=== PATIENT | female | born 1990 | race Two or more races ===

== ENCOUNTER 2017-04-27 11:19 | Emergency (ER) | payer OTHER ==
[~2017-04-27] VITALS: Ht 144.8 cm; Wt 68.0 kg
[2017-04-27] MEDS ORDERED: NKM (11:26)
[2017-04-27 12:16] LABS: APPEARANCE,URINE CLEAR; KETONES,URINE NEGATIVE (NEGATIVE); LEUKOCYTE ESTERASE ,URINE NEGATIVE (NEGATIVE); NITRITE,URINE NEGATIVE (NEGATIVE); PH,URINE 8 (4.5-8.0); PROTEIN,URINE NEGATIVE (NEGATIVE); UROBILINOGEN,URINE NORMAL MG/DL (0.0-1.0)
[2017-04-27 12:16] LABS: BASOPHILS % (AUTO) 0.5 % (0.0-2.0); EOSINOPHILS % (AUTO) 0.3 % (0.0-3.0); LYMPHOCYTES % (AUTO) 20.1 % (20.0-45.0); MEAN CORPUSCULAR HEMOGLOBIN 30.8 PG (27.0-31.0); MEAN CORPUSCULAR HGB CONC 34.7 G/DL (32.0-36.0); MEAN CORPUSCULAR VOLUME 89 FL (80-99); MEAN PLATELET VOLUME 8.7 FL (6.5-10.1); MONOCYTES % (AUTO) 4.5 % (1.0-10.0); NEUTROPHILS % (AUTO) 74.5 % (45.0-75.0); PLATELET COUNT 253 K/UL (150-450); RED BLOOD COUNT 4.86 M/UL (4.20-5.40); RED CELL DISTRIBUTION WIDTH 10.7 % (11.6-14.8); WHITE BLOOD COUNT 6.7 K/UL (4.8-10.8)
[2017-04-27 12:24] LABS: ANION GAP 10 mmol/L (5-15); CALCIUM 9.6 MG/DL (8.5-10.1); CARBON DIOXIDE 27 MMOL/L (21-32); CHLORIDE 102 MMOL/L (98-107); CREATININE 0.8 MG/DL (0.55-1.30); GLOMERULAR FILTRATION RATE > 60 mL/min (>60); POTASSIUM 3.8 MMOL/L (3.5-5.1); SODIUM 139 MMOL/L (136-145)
[2017-04-27 12:25] LABS: BACTERIA,URINE OCCASIONAL /HPF; SQUAMOUS EPITHELIAL CELL,UR OCCASIONAL /LPF (NONE/OCC); WBC,URINE 0-2 /HPF (0 - 2)
[2017-04-27 12:29] LABS: ALANINE AMINOTRANSFERASE 48 U/L (12-78); ALBUMIN/GLOBULIN RATIO 1.1 (1.0-2.7); ASPARTATE AMINO TRANSFERASE 24 U/L (15-37); LIPASE 136 U/L (73-393); TOTAL PROTEIN 8.7 G/DL (6.4-8.2)
--- NOTE | 2017-04-27 13:09 | Emergency Room Report ---
History of Present Illness General Chief Complaint: Complications Source: Patient Present Illness HPI 27-year-old female presents ED for evaluation. Patient referred here to rule out ectopic . Patient states she found out today from her clinic that she is . Has been having vaginal bleeding for last month and a half. Denies abdominal pain. Denies any fevers or chills. No other aggravating relieving factors. Denies any other associated symptoms Allergies: Coded Allergies: No Known Allergies (Unverified , 04/27/17) Patient History Past Medical History: none Past Surgical History: none Pertinent Family History: none Social History: Denies: smoking, alcohol use, drug use Last Menstrual Period: unknown Now: No - "rule out ectopic vs miscarriage" : 0 Para: 0 Immunizations: UTD Reviewed Nursing Documentation: PMH: Agreed, PSxH: Agreed Nursing Documentation-PMH Past Medical History: No Stated History Review of Systems All Other Systems: negative except mentioned in HPI Physical Exam Vital Signs Date Time Temp Pulse Resp B/P (MAP) Pulse Ox O2 Delivery O2 Flow Rate FiO2 04/27/17 11:26 98.1 106 14 135/87 93 Room Air Sp02 EP Interpretation: reviewed, normal General Appearance: no apparent distress, alert, GCS 15, non-toxic Head: normocephalic, atraumatic Eyes: bilateral eye normal inspection, bilateral eye PERRL ENT: hearing grossly normal, normal pharynx, no angioedema, normal voice Neck: full range of motion, supple/symm/no masses Respiratory: chest non-tender, lungs clear, normal breath sounds, speaking full sentences Cardiovascular #1: regular rate, rhythm, no edema Cardiovascular #2: 2+ carotid (R), 2+ carotid (L), 2+ radial (R), 2+ radial (L) , 2+ dorsalis pedis (R), 2+ dorsalis pedis (L) Gastrointestinal: normal bowel sounds, non tender, soft, non-distended, no guarding, no rebound Rectal: deferred Genitourinary: normal inspection, no CVA tenderness Musculoskeletal: back normal, gait/station normal, normal range of motion, non- tender Neurologic: alert, oriented x3, responsive, motor strength/tone normal, sensory intact, speech normal Psychiatric: judgement/insight normal, memory normal, mood/affect normal, no suicidal/homicidal ideation Reflexes: 3+ bicep (R), 3+ bicep (L), 3+ tricep (R), 3+ tricep (L), 3+ knee (R) , 3+ knee (L) Skin: normal color, no rash, warm/dry, well hydrated Lymphatic: no adenopathy Medical Decision Making Diagnostic Impression: Primary Impression: Miscarriage Labs Test 04/27/17 11:39 04/27/17 12:06 Urine Color Pale yellow Urine Appearance Clear Urine pH 8 (4.5-8.0) Urine Specific [place] 1.010 (1.005-1.035) Urine Protein Negative (NEGATIVE) Urine Glucose (UA) Negative (NEGATIVE) Urine Ketones Negative (NEGATIVE) Urine Occult Blood 5+ (NEGATIVE) Urine Nitrite Negative (NEGATIVE) Urine Bilirubin Negative (NEGATIVE) Urine Urobilinogen Normal MG/DL (0.0-1.0) Urine Leukocyte Esterase Negative (NEGATIVE) Urine RBC 5-10 /HPF (0 - 2) Urine WBC 0-2 /HPF (0 - 2) Urine Squamous Epithelial Cells Occasional /LPF Urine Bacteria Occasional /HPF (NONE) Urine HCG, Qualitative Negative White Blood Count 6.7 K/UL (4.8-10.8) Red Blood Count 4.86 M/UL (4.20-5.40) Hemoglobin 15.0 G/DL (12.0-16.0) Hematocrit 43.2 % (37.0-47.0) Mean Corpuscular Volume 89 FL (80-99) Mean Corpuscular Hemoglobin 30.8 PG (27.0-31.0) Mean Corpuscular Hemoglobin Concent 34.7 G/DL (32.0-36.0) Red Cell Distribution Width 10.7 % (11.6-14.8) Platelet Count 253 K/UL (150-450) Mean Platelet Volume 8.7 FL (6.5-10.1) Neutrophils (%) (Auto) 74.5 % (45.0-75.0) Lymphocytes (%) (Auto) 20.1 % (20.0-45.0) Monocytes (%) (Auto) 4.5 % (1.0-10.0) Eosinophils (%) (Auto) 0.3 % (0.0-3.0) Basophils (%) (Auto) 0.5 % (0.0-2.0) Sodium Level 139 MMOL/L (136-145) Potassium Level 3.8 MMOL/L (3.5-5.1) Chloride Level 102 MMOL/L (98-107) Carbon Dioxide Level 27 MMOL/L (21-32) Anion Gap 10 mmol/L (5-15) Blood Urea Nitrogen 12 mg/dL (7-18) Creatinine 0.8 MG/DL (0.55-1.30) Estimat Glomerular Filtration Rate > 60 mL/min (>60) Glucose Level 110 MG/DL (74-106) Calcium Level 9.6 MG/DL (8.5-10.1) Total Bilirubin 0.3 MG/DL (0.2-1.0) Aspartate Amino Transf (AST/SGOT) 24 U/L (15-37) Alanine Aminotransferase (ALT/SGPT) 48 U/L (12-78) Alkaline Phosphatase 78 U/L (46-116) Total Protein 8.7 G/DL (6.4-8.2) Albumin 4.6 G/DL (3.4-5.0) Globulin 4.1 g/dL Albumin/Globulin Ratio 1.1 (1.0-2.7) Lipase 136 U/L (73-393) Human Chorionic Gonadotropin, Quant 7 mIU/mL (1-6) CT/MRI/US Diagnostic Results CT/MRI/US Diagnostic Results : Imaging Test Ordered: OB US Impression Hospital Course 27-year-old F presents to ED complaining of vaginal bleeding. + Differential diagnoses include: gastrits, gastroenterits, ectopic , ovarian torsion/cyst, UTI Clinical course Patient placed on stretcher in ED. After initial history and physical I ordered labs, IV fluids and OB ultrasound. Labs-no leukocytosis, electrolytes okay, beta hCG 7, UA unremarkable Pelvic ultrasound- no IUP detected Clinically, findings consistent with miscarriage. Discussed findings with patient. Diagnosis - miscarriage Stable and discharged to home. Followup with PMD/ACCOUNTS MANAGER. Return to ED if symptoms recur or worsen Last Vital Signs Date Time Temp Pulse Resp B/P (MAP) Pulse Ox O2 Delivery O2 Flow Rate FiO2 04/27/17 11:26 98.1 106 14 135/87 93 Room Air Referrals: [facility],REFERRING (PCP) WELLINGTON MANRIQUE M.D. Apr 27, 2017 13:09
[2017-04-27 13:25] VITALS: BP 130/84
--- NOTE | 2017-04-27 15:23 | Diagnostic Imaging Report ---
Indication: Irregular bleeding. Negative test. Pelvic pain Technique: Transabdominal and transvaginal images Comparison: None Findings: Uterus measures 6.6 cm length by 3.1 cm AP. The endometrium measures 6 mm thick. Some bright echoes within the endometrium could indicate foci of calcification. No myometrial abnormality. Right ovary measures 4 cm in length. Left ovary measures 3.6 cm in length. No adnexal mass demonstrated. No free cul-de-sac fluid. There is a small cervical nabothian cyst Impression: Possible endometrial calcifications, of uncertain significance if real Otherwise unremarkable
== END 2017-04-27 13:25 | disposition home or self-care (01) ==
LOC: EMR 12:20
DX: O03.9 Complete or unspecified spontaneous abortion without complication (principal)
CPT/HCPCS: 36415; 76830; 76856; 80053; 81003; 81025; 83690; 84702; 85025; 99283

== ENCOUNTER 2017-12-07 07:21 | Emergency (ER) | payer OTHER ==
[~2017-12-07] VITALS: Ht 144.8 cm; Wt 68.0 kg
[~2017-12-07 07:21] MED LIST: NKM
--- NOTE | 2017-12-07 07:32 | Emergency Room Report ---
History of Present Illness General Chief Complaint: Complications Source: Patient Present Illness HPI Patient presents with vaginal bleeding. Started this morning. She's passed one clot. It's mainly spotting. This happened when she went to the bathroom. She is . Her last period was October 23. She found out she was on November 22 she was seen by her doctor for UTI. She denies any pain at this time She's taking lites. She bought them herself. She does not know her blood type. She is 1 para 0. Patient denies any fevers, chills, vomiting, diarrhea. In reviewing her records she was seen here April 2017. She was seen at the diagnosis of miscarriage. Her beta at that time was 7. There is no evidence of intrauterine by ultrasound. No blood typing done at that time. Allergies: Coded Allergies: No Known Allergies (Unverified , 04/27/17) Patient History Past Medical History: see triage record Social History: Denies: smoking, alcohol use, drug use Social History Narrative Last Menstrual Period: October 23 Now: Yes - 1 month : 2 Para: 0 Reviewed Nursing Documentation: PMH: Agreed; PSxH: Agreed Nursing Documentation-PMH Past Medical History: No Stated History Review of Systems All Other Systems: negative except mentioned in HPI Physical Exam Vital Signs Date Time Temp Pulse Resp B/P (MAP) Pulse Ox O2 Delivery O2 Flow Rate FiO2 12/07/17 07:25 99.3 103 20 134/93 96 Room Air 99.3 Sp02 EP Interpretation: reviewed, normal General Appearance: well appearing, no apparent distress, GCS 15 Head: normocephalic Eyes: bilateral eye normal inspection, bilateral eye PERRL ENT: moist mucus membranes Neck: supple Respiratory: lungs clear, normal breath sounds Cardiovascular #1: regular rate, rhythm Cardiovascular #2: 2+ radial (R) Gastrointestinal: normal inspection, normal bowel sounds, non tender, no mass, non-distended Genitourinary: no CVA tenderness, deferred - for ultrasound Musculoskeletal: back normal, gait/station normal, normal range of motion Neurologic: alert, oriented x3, grossly normal Psychiatric: mood/affect normal Skin: normal inspection, warm/dry Medical Decision Making Diagnostic Impression: Primary Impression: Threatened miscarriage in early Additional Impression: 6 weeks gestation of ER Course Patient presents with vaginal bleeding with history of being . Differential includes threatened miscarriage, bleeding in early , UTI amongst others. Patient needs to be evaluated with labs including blood type and quantitative hCG. Also an ultrasound is ordered. The patient denies any pain at this time. Labs with normal CBC, CMP. Blood type O+. UA clear (except blood). U/S 6 weeks with heart rate 120 - possible fibroid. Discussed findings with patient and risk of miscarriage. Patient stable for outpatient observation and treatment. Laboratory Tests Test 12/07/17 07:50 White Blood Count 7.0 K/UL (4.8-10.8) Red Blood Count 5.01 M/UL (4.20-5.40) Hemoglobin 15.2 G/DL (12.0-16.0) Hematocrit 43.4 % (37.0-47.0) Mean Corpuscular Volume 87 FL (80-99) Mean Corpuscular Hemoglobin 30.4 PG (27.0-31.0) Mean Corpuscular Hemoglobin Concent 35.1 G/DL (32.0-36.0) Red Cell Distribution Width 10.6 % (11.6-14.8) L Platelet Count 262 K/UL (150-450) Mean Platelet Volume 7.6 FL (6.5-10.1) Neutrophils (%) (Auto) 73.2 % (45.0-75.0) Lymphocytes (%) (Auto) 21.7 % (20.0-45.0) Monocytes (%) (Auto) 3.9 % (1.0-10.0) Eosinophils (%) (Auto) 0.5 % (0.0-3.0) Basophils (%) (Auto) 0.7 % (0.0-2.0) Urine Color Yellow Urine Appearance Slightly cloudy Urine pH 6 (4.5-8.0) Urine Specific [place] 1.020 (1.005-1.035) Urine Protein 1+ (NEGATIVE) H Urine Glucose (UA) Negative (NEGATIVE) Urine Ketones Negative (NEGATIVE) Urine Occult Blood 5+ (NEGATIVE) H Urine Nitrite Negative (NEGATIVE) Urine Bilirubin Negative (NEGATIVE) Urine Urobilinogen Normal MG/DL (0.0-1.0) Urine Leukocyte Esterase 1+ (NEGATIVE) H Urine RBC 60-80 /HPF (0 - 2) H Urine WBC 2-4 /HPF (0 - 2) Urine Squamous Epithelial Cells Few /LPF (NONE/OCC) Urine Bacteria Few /HPF (NONE) Sodium Level 135 MMOL/L (136-145) L Potassium Level 3.7 MMOL/L (3.5-5.1) Chloride Level 102 MMOL/L (98-107) Carbon Dioxide Level 22 MMOL/L (21-32) Anion Gap 11 mmol/L (5-15) Blood Urea Nitrogen 9 mg/dL (7-18) Creatinine 0.7 MG/DL (0.55-1.30) Estimate Glomerular Filtration Rate > 60 mL/min (>60) Glucose Level 125 MG/DL (74-106) H Calcium Level 9.0 MG/DL (8.5-10.1) Total Bilirubin 0.3 MG/DL (0.2-1.0) Aspartate Amino Transferase (AST) 15 U/L (15-37) Alanine Aminotransferase (ALT) 34 U/L (12-78) Alkaline Phosphatase 73 U/L (46-116) Total Protein 8.2 G/DL (6.4-8.2) Albumin 4.1 G/DL (3.4-5.0) Globulin 4.1 g/dL Albumin/Globulin Ratio 1.0 (1.0-2.7) Lipase 131 U/L (73-393) Human Chorionic Gonadotropin, Quant 23589 mIU/mL (1-6) H Last Vital Signs Date Time Temp Pulse Resp B/P (MAP) Pulse Ox O2 Delivery O2 Flow Rate FiO2 12/07/17 09:47 99.3 88 20 129/87 99 Room Air 99.3 Status: improved Disposition: HOME, SELF-CARE Condition: Improved Scripts Vit #76/Iron,Carb/Fa (PRENATABS RX TABLET) 1 Each Tablet 1 EACH PO DAILY, #30 TAB 2 Refills Prov: Akhil Espinal M.D. 12/07/17 Akhil Espinal M.D. Dec 07, 2017 07:32
[2017-12-07 08:28] LABS: APPEARANCE,URINE SLIGHTLY CLOUDY; BASOPHILS % (AUTO) 0.7 % (0.0-2.0); BILIRUBIN, URINE NEGATIVE (NEGATIVE); EOSINOPHILS % (AUTO) 0.5 % (0.0-3.0); GLUCOSE, URINE (UA) NEGATIVE (NEGATIVE); HEMATOCRIT 43.4 % (37.0-47.0); HEMOGLOBIN 15.2 G/DL (12.0-16.0); KETONES,URINE NEGATIVE (NEGATIVE); LEUKOCYTE ESTERASE ,URINE 1+ (NEGATIVE); LYMPHOCYTES % (AUTO) 21.7 % (20.0-45.0); MEAN CORPUSCULAR VOLUME 87 FL (80-99); MONOCYTES % (AUTO) 3.9 % (1.0-10.0); NEUTROPHILS % (AUTO) 73.2 % (45.0-75.0); NITRITE,URINE NEGATIVE (NEGATIVE); PH,URINE 6 (4.5-8.0); PLATELET COUNT 262 K/UL (150-450); PROTEIN,URINE 1+ (NEGATIVE); RED BLOOD COUNT 5.01 M/UL (4.20-5.40); RED CELL DISTRIBUTION WIDTH 10.6 % (11.6-14.8); UROBILINOGEN,URINE NORMAL MG/DL (0.0-1.0)
[2017-12-07 08:32] LABS: COLOR,URINE YELLOW
[2017-12-07 08:41] LABS: ANION GAP 11 mmol/L (5-15); BLOOD UREA NITROGEN 9 mg/dL (7-18); CARBON DIOXIDE 22 MMOL/L (21-32); CHLORIDE 102 MMOL/L (98-107); CREATININE 0.7 MG/DL (0.55-1.30); POTASSIUM 3.7 MMOL/L (3.5-5.1); SODIUM 135 MMOL/L (136-145)
[2017-12-07 08:45] LABS: ALANINE AMINOTRANSFERASE 34 U/L (12-78); ALBUMIN 4.1 G/DL (3.4-5.0); ALKALINE PHOSPHATASE 73 U/L (46-116); ASPARTATE AMINO TRANSFERASE 15 U/L (15-37); BILIRUBIN,TOTAL 0.3 MG/DL (0.2-1.0)
[2017-12-07] MEDS ORDERED: PRENATABS RX T1 EACH PO (09:38)
[2017-12-07 09:45] VITALS: BP 129/87
[2017-12-07 09:47] VITALS: BP 129/87
--- NOTE | 2017-12-07 10:28 | Diagnostic Imaging Report ---
Indication: Vaginal bleeding, positive test Technique: Transabdominal and transvaginal images Comparison: 04/27/2017 Findings: Uterus measures 9.8 cm length by 4.5 cm AP. Within the endometrium, there is a gestational sac. This demonstrates a yolk sac and a pole which demonstrates positive heart activity, heart rate 120 bpm. There is possible small subchorionic hemorrhage adjacent to the gestational sac. The crown-rump length of the pole is 4 mm, corresponding to estimated gestational age of 6 weeks zero days. Probable 3 cm uterine fibroid demonstrated. The left ovary measures 2.6 cm in length. The right ovary measures 4 cm in length, demonstrates a possible small hemorrhagic corpus luteum. Bilateral ovarian Doppler flow is demonstrated. No free cul-de-sac fluid is evident Impression: Positive for single live intrauterine , estimated gestational age 6 weeks zero days by crown-rump length measurement Suspect small subchorionic hemorrhage Probable 3 cm uterine fibroid
== END 2017-12-07 09:52 | disposition home or self-care (01) ==
LOC: EMR 07:35
DX: O20.0 Threatened abortion (principal); Z3A.01 Less than 8 weeks gestation of pregnancy
CPT/HCPCS: 36415; 76801; 76830; 80053; 81003; 83690; 84702; 85025; 86850; 86900; 86901; 99284

== ENCOUNTER 2018-01-09 06:56 | Emergency (ER) | payer OTHER ==
[~2018-01-09] VITALS: Ht 144.8 cm; Wt 68.0 kg
[~2018-01-09 06:56] MED LIST changes: +PRENATABS RX T1 EACH PO
[2018-01-09] MEDS ORDERED: Metoclopramide 10mg/2ml Inj IVP ONE (07:15)
[2018-01-09] MEDS ORDERED: DiphenhydrAMINE 50mg/ml Inj IVP ONE (07:15)
--- NOTE | 2018-01-09 07:25 | Emergency Room Report ---
History of Present Illness General Chief Complaint: Complications Source: Patient Present Illness HPI Patient presents with vaginal bleeding. She passed about 4 cups of blood in the toilet this morning. There was also some clot or possibly tissue. The bleeding has decreased at this time. She complains about lower back pain that' s 8/10 and cramping and aching. She is taking vitamins. The patient is 12 weeks . She does not know her blood type. She had a miscarriage in April. She does not have children at this time. No fevers, chills, dyspnea, chest pain, headache, dysuria, discharge, change in bowels, rashes. Allergies: Coded Allergies: No Known Allergies (Unverified , 04/27/17) Patient History Past Medical History: see triage record Social History: Denies: smoking, alcohol use, drug use Social History Narrative with sig other Last Menstrual Period: October : 2 Para: 0 Reviewed Nursing Documentation: PMH: Agreed; PSxH: Agreed Review of Systems All Other Systems: negative except mentioned in HPI Physical Exam Vital Signs Date Time Temp Pulse Resp B/P (MAP) Pulse Ox O2 Delivery O2 Flow Rate FiO2 01/09/18 07:00 98.4 100 18 114/84 97 Room Air 98.4 Sp02 EP Interpretation: reviewed, normal General Appearance: well appearing, no apparent distress, GCS 15 Head: normocephalic Eyes: bilateral eye normal inspection, bilateral eye PERRL ENT: moist mucus membranes Neck: supple Respiratory: lungs clear, normal breath sounds Cardiovascular #1: regular rate, rhythm Cardiovascular #2: 2+ radial (R) Gastrointestinal: normal inspection, normal bowel sounds, non tender, no mass, non-distended Genitourinary: no CVA tenderness, deferred - for ultrasound Musculoskeletal: back normal, gait/station normal, normal range of motion Neurologic: alert, oriented x3, grossly normal Psychiatric: mood/affect normal Skin: normal inspection, warm/dry Medical Decision Making Diagnostic Impression: Primary Impression: Threatened miscarriage Additional Impressions: Fibroid Qualified Codes: D25.9 - Leiomyoma of uterus, unspecified 11 weeks gestation of ER Course Patient 12 weeks with vaginal bleeding. DDx: threatened miscarriage, complete miscarriage, uterine hemorrhage, UTI amongst others. Evaluation with labs and ultrasound. Treated with Reglan, benadryl and morphine 2 mg.l. CBC normal. CMP normal. Quant 106,000. UA with more blood but few WBC. Blood type O+. Ultrasound with viable fetus with fibroid and subchorionic hemorrhage. Patient states bleeding and pain have resolved. Discussed findings with patient. Patient stable for outpatient observation and treatment. Laboratory Tests Test 01/09/18 07:20 White Blood Count 7.4 K/UL (4.8-10.8) Red Blood Count 4.15 M/UL (4.20-5.40) L Hemoglobin 12.5 G/DL (12.0-16.0) Hematocrit 35.1 % (37.0-47.0) L Mean Corpuscular Volume 85 FL (80-99) Mean Corpuscular Hemoglobin 30.0 PG (27.0-31.0) Mean Corpuscular Hemoglobin Concent 35.5 G/DL (32.0-36.0) Red Cell Distribution Width 10.2 % (11.6-14.8) L Platelet Count 229 K/UL (150-450) Mean Platelet Volume 7.6 FL (6.5-10.1) Neutrophils (%) (Auto) 72.8 % (45.0-75.0) Lymphocytes (%) (Auto) 22.6 % (20.0-45.0) Monocytes (%) (Auto) 3.9 % (1.0-10.0) Eosinophils (%) (Auto) 0.3 % (0.0-3.0) Basophils (%) (Auto) 0.4 % (0.0-2.0) Prothrombin Time 11.2 SEC (9.30-11.50) Prothrombin Time INR 1.1 (0.9-1.1) PTT 31 SEC (23-33) Urine Color Red Urine Appearance Cloudy Urine pH 6.5 (4.5-8.0) Urine Specific [place] 1.020 (1.005-1.035) Urine Protein 3+ (NEGATIVE) H Urine Glucose (UA) Negative (NEGATIVE) Urine Ketones 1+ (NEGATIVE) H Urine Occult Blood 5+ (NEGATIVE) H Urine Nitrite Negative (NEGATIVE) Urine Bilirubin Negative (NEGATIVE) Urine Urobilinogen Normal MG/DL (0.0-1.0) Urine Leukocyte Esterase 3+ (NEGATIVE) H Urine RBC Tntc /HPF (0 - 2) H Urine WBC 5-10 /HPF (0 - 2) H Urine Squamous Epithelial Cells Few /LPF (NONE/OCC) Urine Bacteria Occasional /HPF (NONE) Sodium Level 136 MMOL/L (136-145) Potassium Level 3.6 MMOL/L (3.5-5.1) Chloride Level 103 MMOL/L (98-107) Carbon Dioxide Level 24 MMOL/L (21-32) Anion Gap 9 mmol/L (5-15) Blood Urea Nitrogen 8 mg/dL (7-18) Creatinine 0.6 MG/DL (0.55-1.30) Estimate Glomerular Filtration Rate > 60 mL/min (>60) Glucose Level 101 MG/DL (74-106) Calcium Level 8.8 MG/DL (8.5-10.1) Total Bilirubin 0.4 MG/DL (0.2-1.0) Aspartate Amino Transferase (AST) 15 U/L (15-37) Alanine Aminotransferase (ALT) 25 U/L (12-78) Alkaline Phosphatase 55 U/L (46-116) Total Protein 7.3 G/DL (6.4-8.2) Albumin 3.6 G/DL (3.4-5.0) Globulin 3.7 g/dL Albumin/Globulin Ratio 1.0 (1.0-2.7) Lipase 112 U/L (73-393) Human Chorionic Gonadotropin, Quant 493314 mIU/mL (1-6) H CT/MRI/US Diagnostic Results CT/MRI/US Diagnostic Results : Imaging Test Ordered: pelvic us Impression subchorianic hemorrhage, FHT intact Impression: 10 week 6 day, by crown-rump length measurement, single live intrauterine Positive for subchorionic hemorrhage Lower uterine segment anterior fundal fibroid, also previously described Negative for adnexal mass Last Vital Signs Date Time Temp Pulse Resp B/P (MAP) Pulse Ox O2 Delivery O2 Flow Rate FiO2 01/09/18 11:44 98.5 73 18 107/66 100 Room Air 98.5 Status: improved Disposition: HOME, SELF-CARE Condition: Stable Scripts Acetaminophen (Tylenol) 325 Mg Tablet 650 MG ORAL Q6H PRN for Prn Pain/Headache/Temp > 101, #20 TAB 0 Refills Prov: Akhil Espinal M.D. 01/09/18 Akhil Espinal M.D. Jan 09, 2018 07:25
[2018-01-09] MEDS ORDERED: Morphine Sulfate 2mg/ml Inj(IV/IM USE ONLY) IVP ONE (07:30)
[2018-01-09 07:39] LABS: BASOPHILS % (AUTO) 0.4 % (0.0-2.0); EOSINOPHILS % (AUTO) 0.3 % (0.0-3.0); HEMATOCRIT 35.1 % (37.0-47.0); HEMOGLOBIN 12.5 G/DL (12.0-16.0); LYMPHOCYTES % (AUTO) 22.6 % (20.0-45.0); MEAN CORPUSCULAR VOLUME 85 FL (80-99); MONOCYTES % (AUTO) 3.9 % (1.0-10.0); NEUTROPHILS % (AUTO) 72.8 % (45.0-75.0); PLATELET COUNT 229 K/UL (150-450); RED BLOOD COUNT 4.15 M/UL (4.20-5.40); RED CELL DISTRIBUTION WIDTH 10.2 % (11.6-14.8); WHITE BLOOD COUNT 7.4 K/UL (4.8-10.8)
[2018-01-09 07:44] LABS: INR 1.1 (0.9-1.1)
[2018-01-09 07:50] LABS: APPEARANCE,URINE CLOUDY; BILIRUBIN, URINE NEGATIVE (NEGATIVE); GLUCOSE, URINE (UA) NEGATIVE (NEGATIVE); KETONES,URINE 1+ (NEGATIVE); LEUKOCYTE ESTERASE ,URINE 3+ (NEGATIVE); NITRITE,URINE NEGATIVE (NEGATIVE); PH,URINE 6.5 (4.5-8.0); PROTEIN,URINE 3+ (NEGATIVE); UROBILINOGEN,URINE NORMAL MG/DL (0.0-1.0)
[2018-01-09 07:53] LABS: ANION GAP 9 mmol/L (5-15); BLOOD UREA NITROGEN 8 mg/dL (7-18); CALCIUM 8.8 MG/DL (8.5-10.1); CARBON DIOXIDE 24 MMOL/L (21-32); CHLORIDE 103 MMOL/L (98-107); COLOR,URINE RED; CREATININE 0.6 MG/DL (0.55-1.30); POTASSIUM 3.6 MMOL/L (3.5-5.1); SODIUM 136 MMOL/L (136-145)
[2018-01-09 07:58] LABS: ALANINE AMINOTRANSFERASE 25 U/L (12-78); ALBUMIN 3.6 G/DL (3.4-5.0); ALKALINE PHOSPHATASE 55 U/L (46-116); ASPARTATE AMINO TRANSFERASE 15 U/L (15-37); BILIRUBIN,TOTAL 0.4 MG/DL (0.2-1.0)
[2018-01-09 10:16] VITALS: BP 112/70
--- NOTE | 2018-01-09 11:05 | Diagnostic Imaging Report ---
Indication: Pelvic pain and bleeding, patient Technique: Transabdominal and transvaginal images Comparison: 12/07/2017 Findings: Uterus measures 13.5 cm length by 7.3 cm AP. Within the endometrium, there is a gestational sac. This contains a live intrauterine , demonstrating heart activity with a heart rate of 160 bpm. Harrod-rump length is 39 mm, corresponding to an estimated gestational age of 10 weeks 6 days. Estimated date of delivery is 07/31/2018. This represents appropriate interval growth since the previous exam. This correlates with the estimated gestational age by dates of 11 weeks one day. There is a lower uterine segment anterior fundal fibroid which measures 3 cm in diameter, also previously reported. Inferior to the gestational sac, there is a hypoechoic avascular area which measures approximately 23 x 8 mm and likely represents an area of subchorionic hemorrhage. Blood/debris is seen in the endocervical canal The left ovary measures 3.7 cm in length. The right ovary measures 3.2 cm in length. No adnexal mass demonstrated. No free cul-de-sac fluid. . Impression: 10 week 6 day, by crown-rump length measurement, single live intrauterine Positive for subchorionic hemorrhage Lower uterine segment anterior fundal fibroid, also previously described Negative for adnexal mass Findings discussed by phone with Dr. Espinal at the time of interpretation
[2018-01-09] MEDS ORDERED: TYLENOL325 MG ORAL (11:32)
[2018-01-09 11:44] VITALS: BP 107/66
== END 2018-01-09 11:44 | disposition home or self-care (01) ==
LOC: EMR 07:30
DX: O20.0 Threatened abortion (principal); Z3A.11 11 weeks gestation of pregnancy; D25.9 Leiomyoma of uterus, unspecified
CPT/HCPCS: 36415; 76801; 80053; 81003; 83690; 84702; 85025; 85610; 85730; 86900; 86901; 96361; 96374; 96375; 99285; J1200; J2270; J2765

== ENCOUNTER 2018-02-02 10:22 | Emergency (ER) | payer OTHER ==
[~2018-02-02] VITALS: Ht 162.6 cm; Wt 63.5 kg
[~2018-02-02 10:22] MED LIST changes: +TYLENOL325 MG ORAL
[2018-02-02 11:01] LABS: HEMATOCRIT 33.6 % (37.0-47.0); HEMOGLOBIN 11.8 G/DL (12.0-16.0); MEAN CORPUSCULAR VOLUME 86 FL (80-99); PLATELET COUNT 212 K/UL (150-450); RED CELL DISTRIBUTION WIDTH 10.7 % (11.6-14.8); WHITE BLOOD COUNT 10.4 K/UL (4.8-10.8)
--- NOTE | 2018-02-02 11:02 | Emergency Room Report ---
History of Present Illness General Chief Complaint: Complications Source: Patient Present Illness HPI Patient presents with complaints of vaginal bleeding She feels that she likely passed products of conception earlier Patient has been here onto recent presentations with vaginal bleeding with possible threatened miscarriage Patient is her last before this was in April also had a miscarriage at that time Denies any chest pain or short of breath she has some mild suprapubic discomfort denies any vomiting or diarrhea denies any fevers chills Allergies: Coded Allergies: No Known Allergies (Unverified , 04/27/17) Patient History Past Medical History: see triage record Pertinent Family History: none Last Menstrual Period: 10/23/2017 Now: Yes : 2 Para: 0 Reviewed Nursing Documentation: PMH: Agreed; PSxH: Agreed Nursing Documentation-PMH Past Medical History: No History, Except For Review of Systems All Other Systems: negative except mentioned in HPI Physical Exam Vital Signs Date Time Temp Pulse Resp B/P (MAP) Pulse Ox O2 Delivery O2 Flow Rate FiO2 02/02/18 10:35 98.2 130 18 115/76 97 Room Air 98.2 Sp02 EP Interpretation: reviewed, normal General Appearance: well appearing, no apparent distress Head: normocephalic, atraumatic Eyes: bilateral eye PERRL, bilateral eye EOMI ENT: normal pharynx - Check one to Neck: full range of motion, supple, no meningismus, no bony tend Respiratory: lungs clear, normal breath sounds, no rhonchi, no respiratory distress, no retraction, no accessory muscle use Cardiovascular #1: normal peripheral pulses, no edema, no gallop, no JVD, no murmur, tachycardia Gastrointestinal: normal bowel sounds, non tender, soft, no mass, no organomegaly, non-distended, no guarding, no hernia, no pulsatile mass, no rebound Genitourinary: no CVA tenderness Musculoskeletal: normal inspection Neurologic: oriented x3, responsive, payment poster III-XII nml as tested, motor strength/ tone normal, sensory intact Psychiatric: mood/affect normal Skin: normal color, no rash, warm/dry, palpation normal Lymphatic: normal inspection, no adenopathy Medical Decision Making Diagnostic Impression: Primary Impression: Incomplete ER Course Given the patient's history exam medical records are reviewed Patient did have previous history of intrauterine patient however was somewhat tachycardic and therefore extensive workup was initiated Ultrasound reveals findings of likely incomplete miscarriage Blood work is otherwise at appropriate levels there is evidence of UTI however Patient provided with antibiotics pain medication Observed for significant observation time in the emergency room continues to do well At this time she is discussed regarding retained products discussion with possible further passing of material versus requiring D&C Patient will see her OB physician on Monday otherwise will return to the ER with any worsening symptoms Labs Test 02/02/18 10:10 02/02/18 10:28 White Blood Count 10.4 K/UL (4.8-10.8) Red Blood Count 3.90 M/UL (4.20-5.40) Hemoglobin 11.8 G/DL (12.0-16.0) Hematocrit 33.6 % (37.0-47.0) Mean Corpuscular Volume 86 FL (80-99) Mean Corpuscular Hemoglobin 30.3 PG (27.0-31.0) Mean Corpuscular Hemoglobin Concent 35.1 G/DL (32.0-36.0) Red Cell Distribution Width 10.7 % (11.6-14.8) Platelet Count 212 K/UL (150-450) Mean Platelet Volume 6.5 FL (6.5-10.1) Neutrophils (%) (Auto) % (45.0-75.0) Lymphocytes (%) (Auto) % (20.0-45.0) Monocytes (%) (Auto) % (1.0-10.0) Eosinophils (%) (Auto) % (0.0-3.0) Basophils (%) (Auto) % (0.0-2.0) Differential Total Cells Counted 100 Neutrophils % (Manual) 88 % (45-75) Lymphocytes % (Manual) 5 % (20-45) Monocytes % (Manual) 3 % (1-10) Eosinophils % (Manual) 0 % (0-3) Basophils % (Manual) 0 % (0-2) Band Neutrophils 4 % (0-8) Platelet Estimate Adequate Platelet Morphology Normal Red Blood Cell Morphology Normal Sodium Level 133 MMOL/L (136-145) Potassium Level 3.5 MMOL/L (3.5-5.1) Chloride Level 101 MMOL/L (98-107) Carbon Dioxide Level 23 MMOL/L (21-32) Anion Gap 9 mmol/L (5-15) Blood Urea Nitrogen 4 mg/dL (7-18) Creatinine 0.5 MG/DL (0.55-1.30) Estimat Glomerular Filtration Rate > 60 mL/min (>60) Glucose Level 101 MG/DL (74-106) Calcium Level 9.0 MG/DL (8.5-10.1) Total Bilirubin 0.4 MG/DL (0.2-1.0) Aspartate Amino Transf (AST/SGOT) 20 U/L (15-37) Alanine Aminotransferase (ALT/SGPT) 25 U/L (12-78) Alkaline Phosphatase 80 U/L (46-116) Total Protein 7.3 G/DL (6.4-8.2) Albumin 3.1 G/DL (3.4-5.0) Globulin 4.2 g/dL Albumin/Globulin Ratio 0.7 (1.0-2.7) Human Chorionic Gonadotropin, Quant 08529 mIU/mL (1-6) Urine Color Red Urine Appearance Turbid Urine pH 5 (4.5-8.0) Urine Specific [place] 1.020 (1.005-1.035) Urine Protein 4+ (NEGATIVE) Urine Glucose (UA) Negative (NEGATIVE) Urine Ketones 1+ (NEGATIVE) Urine Blood 5+ (NEGATIVE) Urine Nitrite Negative (NEGATIVE) Urine Bilirubin Negative (NEGATIVE) Urine Urobilinogen Normal MG/DL (0.0-1.0) Urine Leukocyte Esterase 2+ (NEGATIVE) Urine RBC Tntc /HPF (0 - 2) Urine WBC 20-30 /HPF (0 - 2) Urine Squamous Epithelial Cells Few /LPF (NONE/OCC) Urine Bacteria Few /HPF (NONE) CT/MRI/US Diagnostic Results CT/MRI/US Diagnostic Results : Impression pelvic ultrasoundImpression: Absence of fetus within the endometrium, consistent with stated clinical history recent spontaneous . Soft tissue structure within the endometrium, appearance highly suggestive of this being a retained placenta. Other retained products of conception also possible Bright echoes within the endometrium probably represent gas bubbles. Suspect that just represents refluxed air related to the recent spontaneous . However , the possibility of endometritis should also be considered Negative for adnexal mass Probable uterine segment fundal fibroid Last Vital Signs Date Time Temp Pulse Resp B/P (MAP) Pulse Ox O2 Delivery O2 Flow Rate FiO2 02/02/18 10:35 98.2 130 18 115/76 97 Room Air 98.2 Status: improved Disposition: HOME, SELF-CARE Condition: Improved Scripts Ibuprofen* (MOTRIN*) 600 Mg Tablet 600 MG ORAL Q8H PRN for For Pain, #20 TAB 0 Refills Prov: Leonard Medellin DO 02/02/18 Nitrofurantoin Monohyd/M-Cryst* (MACROBID 100 MG*) 100 Mg Capsule 100 MG ORAL EVERY 12 HOURS for 7 Days, CAP Prov: Leonard Medellin DO 02/02/18 Ibuprofen* (MOTRIN*) 600 Mg Tablet 600 MG ORAL Q8H PRN for For Pain, #20 TAB 0 Refills Prov: Leonard Medellin DO 02/02/18 Acetaminophen With Codeine (T#3) (TYLENOL #3 TAB*) Y Tab 1 TAB ORAL Q8H PRN for For Pain, #10 TAB Prov: Leonard Medellin DO 02/02/18 Referrals: NON PHYSICIAN (PCP) Additional Instructions: Patient is provided with the discharge instructions notified to follow up with primary doctor in the next 2-3 days otherwise return to the er with any worsening symptoms. Please note that this report is being documented using [employer] technology. This can lead to erroneous entry secondary to incorrect interpretation by the dictating instrument. Leonard Medellin DO Feb 02, 2018 11:02
[2018-02-02 11:03] LABS: APPEARANCE,URINE TURBID; BILIRUBIN, URINE NEGATIVE (NEGATIVE); COLOR,URINE RED; GLUCOSE, URINE (UA) NEGATIVE (NEGATIVE); KETONES,URINE 1+ (NEGATIVE); LEUKOCYTE ESTERASE ,URINE 2+ (NEGATIVE); NITRITE,URINE NEGATIVE (NEGATIVE); PH,URINE 5 (4.5-8.0); PROTEIN,URINE 4+ (NEGATIVE); UROBILINOGEN,URINE NORMAL MG/DL (0.0-1.0)
[2018-02-02 11:20] LABS: ANION GAP 9 mmol/L (5-15); BLOOD UREA NITROGEN 4 mg/dL (7-18); CARBON DIOXIDE 23 MMOL/L (21-32); CHLORIDE 101 MMOL/L (98-107); CREATININE 0.5 MG/DL (0.55-1.30); POTASSIUM 3.5 MMOL/L (3.5-5.1); SODIUM 133 MMOL/L (136-145)
[2018-02-02 11:29] LABS: ALANINE AMINOTRANSFERASE 25 U/L (12-78); ALBUMIN 3.1 G/DL (3.4-5.0); ALBUMIN/GLOBULIN RATIO 0.7 (1.0-2.7); ALKALINE PHOSPHATASE 80 U/L (46-116); ASPARTATE AMINO TRANSFERASE 20 U/L (15-37); BILIRUBIN,TOTAL 0.4 MG/DL (0.2-1.0)
[2018-02-02 12:25] VITALS: BP 99/84
[2018-02-02] MEDS ORDERED: Cephalexin 500mg cap ORAL ONE (12:45)
[2018-02-02] MEDS ORDERED: Ketorolac 30mg Inj IV ONE (12:45)
--- NOTE | 2018-02-02 12:45 | Diagnostic Imaging Report ---
02/02/2018 Indication: Abdominal pain, status post miscarriage earlier today Technique: Transabdominal and transvaginal images Comparison: 01/09/2018 Findings: Uterus measures 12.5 cm length by 6.4 cm AP. Bright nondependent echoes within the endometrium could represent gas bubbles. A vascular soft tissue structure is seen posteriorly in the endometrium, likely reflects a retained placenta or other retained products of conception. This is best seen on the transabdominal images. No fluid is seen in the endometrium. No fetus is seen in the abdomen There is a probable 3.5 cm lower uterine fundal fibroid. Right ovary measures 3.7 cm in length, is only visible on transabdominal images. The left ovary measures 3.9 cm in length, is only visible on the transvaginal images. Both ovaries demonstrate normal blood flow on color Doppler imaging Impression: Absence of fetus within the endometrium, consistent with stated clinical history recent spontaneous . Soft tissue structure within the endometrium, appearance highly suggestive of this being a retained placenta. Other retained products of conception also possible Bright echoes within the endometrium probably represent gas bubbles. Suspect that just represents refluxed air related to the recent spontaneous . However, the possibility of endometritis should also be considered Negative for adnexal mass Probable uterine segment fundal fibroid Findings discussed by phone with Dr. Medellin in the emergency room
[2018-02-02] MEDS ORDERED: IBUPROFEN600 MG ORAL ×2 (14:01→14:03)
[2018-02-02] MEDS ORDERED: ACETAMINOPHEN-1 EAC1 ORAL (14:01)
[2018-02-02] MEDS ORDERED: NITROFURANTOIN100 M2 ORAL (14:03)
[2018-02-02 14:11] VITALS: BP 117/80
== END 2018-02-02 14:15 | disposition home or self-care (01) ==
LOC: EMR 10:39
DX: O03.4 Incomplete spontaneous abortion without complication (principal)
CPT/HCPCS: 36415; 76805; 80053; 81003; 84702; 85007; 85025; 87086; 96361; 96374; 99284; J1885